=== PATIENT | female | born 1995 | race Caucasian/White ===

== ENCOUNTER 2018-04-30 21:30 | Observation (INO) | payer MEDICAID ==
[~2018-04-30] VITALS: Ht 162.6 cm; Wt 69.4 kg
== END 2018-05-01 00:40 | disposition home or self-care (01) ==
LOC: ER 21:30 → UNDOADMOB 22:15 → 8 EST LDRP 22:15 → L&D 22:15
PROVIDERS: ADMIT Obstetrics & Gynecology; ATTEND Obstetrics & Gynecology
DX: O9A.213 Injury, poisoning and certain other consequences of external causes complicating pregnancy, third trimester (principal); R10.30 Lower abdominal pain, unspecified; Z3A.29 29 weeks gestation of pregnancy
CPT/HCPCS: 76805; 76818; 99281; G0378